=== PATIENT | male | born 1990 | race Caucasian/White ===

== ENCOUNTER 2019-12-13 11:05 | Emergency (ER) | payer OTHER ==
[~2019-12-13 11:05] MED LIST: NO HOME MEDICATIONS
[2019-12-13 11:51] LABS: HEMATOCRIT 48.6 % (42.0-52.0); HEMOGLOBIN 16.1 g/dL (13.5-18.0); LYMPH# 2.7 (1.50-4.00); MEAN CELL VOLUME 90 fl (78-100); MEAN CORPUSCULAR HEMOGLOBIN 30 pg (27-31); MEAN CORPUSCULAR HGB CONC 33 g/dL (33-37); MEAN PLATELET VOLUME 10.3 fl (7.4-10.4); MONO # 0.8 (0.20-0.80); NEU # 7.6 (1.40-6.50); PLATELET COUNT 331 K/mm3 (130-400); RED BLOOD COUNT 5.39 M/mm3 (4.20-5.60); RED CELL DISTRIBUTION WIDTH 12.6 % (11.5-14.5); WHITE BLOOD COUNT 11.2 K/mm3 (4.8-10.8)
[2019-12-13 11:52] LABS: ALBUMIN 4.6 g/dL (3.5-5.0); POTASSIUM 3.4 mmol/L (3.5-5.1)
[2019-12-13 11:54] LABS: TOTAL PROTEIN 8.1 g/dL (6.4-8.3)
[2019-12-13 11:56] LABS: TOTAL BILIRUBIN 0.9 mg/dL (0.2-1.2)
[2019-12-13] MEDS ORDERED: ALPRAZOLAM0.5 MG PO (12:41)
[2019-12-13 12:45] VITALS: BP 120/74
== END 2019-12-13 12:45 | disposition home or self-care (01) ==
LOC: ED 11:05
PROVIDERS: Family Medicine
DX: R06.4 Hyperventilation (principal); R29.0 Tetany; F41.0 Panic disorder [episodic paroxysmal anxiety]
CPT/HCPCS: J2060